=== PATIENT | male | born 1960 | race Caucasian/White ===

== ENCOUNTER → 2018-08-12 | Outpatient (CLI) | payer OTHER ==
[2018-08-12 07:27] LABS: BLOOD UREA NITROGEN 17 MG/DL (7-18); CALCIUM LEVEL 9.5 MG/DL (8.5-10.1); CARBON DIOXIDE LEVEL 27 MEQ/L (21-32); CHLORIDE LEVEL 108 MEQ/L (98-107); CREATININE FOR GFR 0.87 MG/DL (0.70-1.30); GLOMERULAR FILTRATION RATE > 60.0 (>56); GLUCOSE, FASTING 101 MG/DL (70-100); POTASSIUM SERUM 4.1 MEQ/L (3.5-5.1); SODIUM LEVEL 143 MEQ/L (136-145)
[2018-08-12 10:13] LABS: CORTISOL AM 15.3 UG/DL (4.3-22.4)
== END ==
LOC: M LAB 06:30
PROVIDERS: ATTEND Nurse Practitioner Family
DX: E16.2 Hypoglycemia, unspecified (principal)

== ENCOUNTER → 2019-01-09 | Outpatient (REF) | payer OTHER | LOC: M LAB REF 16:47 | PROVIDERS: ATTEND Family Medicine | DX: Z11.59 Encounter for screening for other viral diseases (principal) ==

== ENCOUNTER → 2020-02-17 | Outpatient (CLI) | payer SELFPAY | LOC: M LABSMTC 17:22 | PROVIDERS: ATTEND Pediatrics | DX: Z11.59 Encounter for screening for other viral diseases (principal) ==

== ENCOUNTER 2021-09-13 04:29 | Emergency (ER) | payer OTHER ==
[~2021-09-13] VITALS: Ht 185.4 cm; Wt 133.6 kg
[2021-09-13 04:29] VITALS: BP 169/94
[2021-09-13] MEDS ORDERED: LEXA1TAB2 PO (04:33)
[2021-09-13] MEDS ORDERED: LEXA1TAB PO (04:33)
[2021-09-13] MEDS ORDERED: BUPR150T12 PO (04:33)
== END 2021-09-13 05:18 | disposition left against medical advice (07) ==
LOC: M ED 04:29
DX: Z53.29 Procedure and treatment not carried out because of patient's decision for other reasons (principal)

== ENCOUNTER → 2021-11-24 | Outpatient (REF) | payer OTHER ==
[~2021-11-24] MED LIST: BUPR150T12 PO; LEXA1TAB PO; LEXA1TAB2 PO
== END ==
LOC: M LAB REF 16:04
PROVIDERS: ATTEND Family Medicine
DX: Z00.00 Encounter for general adult medical examination without abnormal findings (principal); E29.1 Testicular hypofunction

== ENCOUNTER 2022-06-29 06:43 | Day surgery (SDC) | payer OTHER ==
[~2022-06-29] VITALS: Ht 182.9 cm; Wt 118.8 kg
[~2022-06-29 06:43] MED LIST changes: +NS 1,000 ML IV ONE
[2022-06-29] MEDS ORDERED: LIDOCAINE 2% 100MG/5ML SDV (FOR ANES.) As Ordered ONE (07:43)
[2022-06-29] MEDS ORDERED: propofoL 200 MG/20 ML VIAL As Ordered ONE (07:43)
[2022-06-29 08:23] VITALS: BP 115/68
== END 2022-06-29 08:24 | disposition home or self-care (01) ==
LOC: M OPP 06:43
PROVIDERS: ATTEND Surgery
DX: Z12.11 Encounter for screening for malignant neoplasm of colon (principal); D12.6 Benign neoplasm of colon, unspecified; K57.30 Diverticulosis of large intestine without perforation or abscess without bleeding; F32.9 Major depressive disorder, single episode, unspecified; F41.9 Anxiety disorder, unspecified; Z79.891 Long term (current) use of opiate analgesic; Z79.899 Other long term (current) drug therapy; Z98.84 Bariatric surgery status

== ENCOUNTER → 2024-04-28 | Outpatient (CLI) | payer OTHER ==
[~2024-04-28] MED LIST changes: -NS 1,000 ML IV ONE
== END ==
LOC: M RAD 14:18
PROVIDERS: ATTEND Orthopaedic Surgery
DX: M79.662 Pain in left lower leg (principal); M79.89 Other specified soft tissue disorders; Z96.652 Presence of left artificial knee joint